=== PATIENT | female | born 1945 | race Caucasian/White ===

== ENCOUNTER 2019-07-20 22:10 | Observation (INO) | payer MEDICARE, BC ==
--- NOTE | 2019-07-20 23:30 | ED ---
General Adult HPI - General Chief complaint: Neck Pain/Injury Stated complaint: Neck/arm numbness Time Seen by Provider: 07/20/19 22:31 Source: patient Mode of arrival: ambulatory Limitations: no limitations - History of Present Illness Initial comments: Patient presents to the ED with her complaining of having posterior left-sided neck pain radiating down her left arm for the past 7-1/2 hours or so. Patient states that her pain has improved currently. Patient states that she did take a dose of Tylenol earlier today. Patient denies known trauma or injury, fever or chills, headache, focal numbness or weakness, chest pain or pressure, dyspnea, dizziness, nausea or vomiting, palpitations, abdominal pain, or any other symptoms or complaints. - Related Data Allergies Allergy/AdvReac Type Severity Reaction Status Date / Time Penicillins Allergy Vomiting Verified 07/20/19 22:19 prochlorperazine Allergy Unknown Verified 07/20/19 22:19 [From Compazine] Review of Systems ROS Statement: Those systems with pertinent positive or pertinent negative responses have been documented in the HPI. ROS Other: All systems not noted in ROS Statement are negative. Past Medical History Past Medical History: GERD/Reflux Additional Past Medical History / Comment(s): osteoporosis History of Any Multi-Drug Resistant Organisms: None Reported Past Surgical History: Appendectomy, Cholecystectomy, Hysterectomy, Ton sillectomy Additional Past Surgical History / Comment(s): basal cell carcinoma, excision of vulvar lesion, bilateral blepharoplasty, septoplasty Past Psychological History: Anxiety, Depression Smoking Status: Never smoker Past Alcohol Use History: None Reported Past Drug Use History: None Reported General Exam Limitations: no limitations General appearance: alert, in no apparent distress Head exam: Present: atraumatic, normocephalic Eye exam: Present: normal appearance, PERRL, EOMI ENT exam: Present: mucous membranes moist Neck exam: Present: full ROM (Trachea is in midline; patient is noted to have tenderness along the superior trapezius muscle along the left side.), other (Trachea is in midline; patient is noted to have some tenderness along her left trapezius muscle superiorly; no midline spinal tenderness is appreciated). Absent: meningismus Respiratory exam: Present: normal lung sounds bilaterally. Absent: respiratory distress, wheezes, rales, rhonchi Cardiovascular Exam: Present: regular rate, normal rhythm, normal heart sounds, other (Normal radial pulses bilaterally) GI/Abdominal exam: Present: soft. Absent: distended, tenderness Back exam: Present: full ROM. Absent: tenderness Neurological exam: Present: alert, oriented X3. Absent: motor sensory deficit Psychiatric exam: Present: anxious Skin exam: Present: warm, dry, intact, normal color Course Vital Signs 07/20/19 07/21/19 22:13 00:00 Temperature 98.0 F Pulse Rate 85 71 Respiratory 18 16 Rate Blood Pressure 180/77 151/67 O2 Sat by Pulse 96 98 Oximetry - Reevaluation(s) Reevaluation #1: 07/21/19 01:00 Case, H&P, test results and ED management were discussed with Dr. Huff (hospitalist). He accepts observational hospital admission. He has no further recommendations at this time. 07/21/19 01:11 Patient denies development of any new pain or symptoms while in the ED. Patient remains alert and breathing comfortably. Patient and are aware of the patient's test results, and patient agrees with hospital admission at this time given her symptoms and minimally elevated troponin. EKG Findings - EKG Comments: EKG Findings:: Normal sinus rhythm, ventricular rate of 76 bpm, normal MT and QRS intervals, normal QT interval, normal axis, no ST or T-wave abnormality, normal EKG Medical Decision Making - Medical Decision Making Given the patient's H&P, I suspect that the patient's symptoms are likely muscul oskeletal and/or radicular in etiology, but given that her troponin is minimally elevated, will admit the patient to the hospital for further cardiac evaluation and observation. She agrees with this plan. - Lab Data Result diagrams: 07/20/19 23:34 07/20/19 23:34 Lab Results 07/20/19 07/20/19 07/20/19 Range/Units 23:30 23:34 23:34 WBC (3.8-10.6) k/uL RBC (3.80-5.40) m/uL Hgb (11.4-16.0) gm/dL Hct (34.0-46.0) % MCV (80.0-100.0) fL MCH (25.0-35.0) pg MCHC (31.0-37.0) g/dL RDW (11.5-15.5) % Plt Count (150-450) k/uL Neutrophils % % Lymphocytes % % Monocytes % % Eosinophils % % Basophils % % Neutrophils # (1.3-7.7) k/uL Lymphocytes # (1.0-4.8) k/uL Monocytes # (0-1.0) k/uL Eosinophils # (0-0.7) k/uL Basophils # (0-0.2) k/uL PT 10.8 (9.0-12.0) sec INR 1.0 (<1.2) APTT 26.7 (22.0-30.0) sec Sodium 140 (137-145) mmol/L Potassium 3.7 (3.5-5.1) mmol/L Chloride 105 (98-107) mmol/L Carbon Dioxide 29 (22-30) mmol/L Anion Gap 6 mmol/L BUN 12 (7-17) mg/dL Creatinine 0.65 (0.52-1.04) mg/dL Est GFR (CKD-EPI)AfAm >90 (>60 ml/min/1.73 sqM) Est GFR (CKD-EPI)NonAf 89 (>60 ml/min/1.73 sqM) Glucose 97 (74-99) mg/dL Calcium 9.1 (8.4-10.2) mg/dL Troponin I 0.040 H* (0.000-0.034) ng/mL 07/20/19 Range/Units 23:34 WBC 6.6 (3.8-10.6) k/uL RBC 4.62 (3.80-5.40) m/uL Hgb 14.0 (11.4-16.0) gm/dL Hct 42.3 (34.0-46.0) % MCV 91.5 (80.0-100.0) fL MCH 30.4 (25.0-35.0) pg MCHC 33.2 (31.0-37.0) g/dL RDW 13.2 (11.5-15.5) % Plt Count 305 (150-450) k/uL Neutrophils % 54 % Lymphocytes % 24 % Monocytes % 7 % Eosinophils % 12 % Basophils % 2 % Neutrophils # 3.6 (1.3-7.7) k/uL Lymphocytes # 1.6 (1.0-4.8) k/uL Monocytes # 0.5 (0-1.0) k/uL Eosinophils # 0.8 H (0-0.7) k/uL Basophils # 0.1 (0-0.2) k/uL PT (9.0-12.0) sec INR (<1.2) APTT (22.0-30.0) sec Sodium (137-145) mmol/L Potassium (3.5-5.1) mmol/L Chloride (98-107) mmol/L Carbon Dioxide (22-30) mmol/L Anion Gap mmol/L BUN (7-17) mg/dL Creatinine (0.52-1.04) mg/dL Est GFR (CKD-EPI)AfAm (>60 ml/min/1.73 sqM) Est GFR (CKD-EPI)NonAf (>60 ml/min/1.73 sqM) Glucose (74-99) mg/dL Calcium (8.4-10.2) mg/dL Troponin I (0.000-0.034) ng/mL - Radiology Data Radiology results: report reviewed (CT cervical spine shows minor degenerative disc changes and no fracture), image reviewed (Chest x-ray is negative) Disposition Clinical Impression: Neck pain, Elevated troponin Disposition: ADMITTED IP TO THIS [facility] Condition: Stable Is patient prescribed a controlled substance at d/c from ED?: No Referrals: Nonstaff,Physician [Primary Care Provider] - 1-2 days Time of Disposition: 01:00
[2019-07-20 23:41] LABS: Basophils # (A) 0.1 k/uL (0-0.2); Basophils % (A) 2 %; Eosinophils # (A) 0.8 k/uL (0-0.7); Eosinophils % (A) 12 %; HCT 42.3 % (34.0-46.0); Lymphocytes # (A) 1.6 k/uL (1.0-4.8); Lymphocytes % (A) 24 %; MCH 30.4 pg (25.0-35.0); MCHC 33.2 g/dL (31.0-37.0); MCV 91.5 fL (80.0-100.0); Mean Platelet Volume 6.7; Monocytes # (A) 0.5 k/uL (0-1.0); Monocytes % (A) 7 %; Neutrophils # (A) 3.6 k/uL (1.3-7.7); Neutrophils % (A) 54 %; Platelet Count 305 k/uL (150-450); RBC 4.62 m/uL (3.80-5.40); RDW 13.2 % (11.5-15.5); WBC 6.6 k/uL (3.8-10.6)
[2019-07-20 23:49] LABS: African American GFR (CKD) >90 (>60 ml/min/1.73 sqM); Anion Gap 6 mmol/L; Blood Urea Nitrogen 12 mg/dL (7-17); Calcium 9.1 mg/dL (8.4-10.2); Carbon Dioxide 29 mmol/L (22-30); Chloride 105 mmol/L (98-107); Glucose 97 mg/dL (74-99); Non-African American GFR(CKD) 89 (>60 ml/min/1.73 sqM); Potassium 3.7 mmol/L (3.5-5.1); Sodium 140 mmol/L (137-145)
[2019-07-21 00:39] LABS: Partial Thromboplastin Time 26.7 sec (22.0-30.0); Prothrombin Time 10.8 sec (9.0-12.0)
--- NOTE | 2019-07-21 00:43 | CT ---
EXAMINATION TYPE: CT cervical spine wo con DATE OF EXAM: 07/21/2019 COMPARISON: None HISTORY: neck pain CT DLP: 241.5 mGycm Automated exposure control for dose reduction was used. TECHNIQUE: CT scan of the cervical spine is obtained without contrast, axial images are obtained, sa gittal and coronal reformatted images are also reviewed. FINDINGS: There is some straightening of the vertebra. Disc spaces are normal for age. Facet joints a re intact. There is mild hypertrophic mild facet arthropathy. The skull base is intact. There is no e vidence of a fracture. IMPRESSION: Minor degenerative disc changes in the cervical spine. No fracture seen.
--- NOTE | 2019-07-21 00:45 | XR ---
EXAMINATION TYPE: XR chest 2V DATE OF EXAM: 07/21/2019 COMPARISON: NONE HISTORY: Neck pain left side arm pain TECHNIQUE: Frontal and lateral views of the chest are obtained. FINDINGS: Heart and mediastinum are normal. Lungs are clear of infiltrate. There is no heart failure . There are no hilar masses. Bony thorax is intact. IMPRESSION: No active cardiopulmonary disease. Normal heart.
[2019-07-21] MEDS ORDERED: ASPIRIN 81 MG PO STA (00:54)
--- NOTE | 2019-07-21 02:11 | P.HPIM ---
History of Present Illness H&P Date: 07/21/19 Patient is a 74-year-old female with a PMH of GERD who presented to the ED with complaints of left lateral neck pain with radiation to the left arm. Patient notes that the pain started earlier today and gradually progressed, with some left arm numbness. She reports that her pain had improved by the time of the interview. She denied any trauma, weakness, numbness, chest pain, shortness of breath, nausea, vomiting, diaphoresis, palpitations, or dizziness. She underwent an extensive evaluation in the emergency room with a CT cervical spine without contrast unremarkable, chest x-ray unremarkable, with EKG showing normal sinus rhythm at 76 bpm with no ischemic changes noted. Laboratory evaluation revealed a troponin level of 0.04, WBC 6.6, hemoglobin 14, platelets 305, sodium 140, potassium 3.7, BUN 12, creatinine 0.65. She was admitted to the medicine service for further management. Review of Systems Pertinent positives and negatives as discussed in HPI, a complete review of systems was performed and all other systems are negative. Past Medical History Past Medical History: GERD/Reflux Additional Past Medical History / Comment(s): osteoporosis History of Any Multi-Drug Resistant Organisms: None Reported Past Surgical History: Appendectomy, Cholecystectomy, Hysterectomy, Tonsillectomy Additional Past Surgical History / Comment(s): basal cell carcinoma, excision of vulvar lesion, bilateral blepharoplasty, septoplasty Past Psychological History: Anxiety, Depression Smoking Status: Never smoker Past Alcohol Use History: None Reported Past Drug Use History: None Reported - Past Family History Father Family Medical History: COPD Additional Family Medical History / Comment(s): States passed from COPD, cardiac problems (unknown) Mother Family Medical History: Cancer Medications and Allergies Allergies Allergy/AdvReac Type Severity Reaction Status Date / Time Penicillins Allergy Vomiting Verified 07/20/19 22:19 prochlorperazine Allergy Unknown Verified 07/20/19 22:19 [From Compazine] Physical Exam Vitals: Vital Signs Temp Pulse Pulse Resp BP BP Pulse Ox 07/21/19 01:41 97.9 F 83 16 181/72 07/21/19 01:37 77 18 152/76 98 07/21/19 00:00 71 16 151/67 98 07/20/19 22:13 98.0 F 85 18 180/77 96 Intake and Output 07/20/19 07/20/19 07/21/19 14:59 22:59 06:59 Other: Weight 69.853 kg General: non toxic, no distress, appears at stated age, normal weight Derm: no unusual rashes/lesions no unusual ecchymoses, warm, dry Head: atraumatic, normocephalic, symmetric Eyes: EOMI, no lid lag, anicteric sclera, pupils equal round reactive to light ENT: Nose and ears atraumatic, no thrush, no pharyngeal erythema Neck: No thyromegaly, no cervical lymphadenopathy, trachea midline, supple Mouth: no lip lesion, mucus membranes moist Cardiovascular: S1S2 reg, no murmur, positive posterior tibial pulse bilateral, no edema, capillary refill less than 2 seconds Lungs: CTA bilateral, no rhonchi, no rales , no accessory muscle use Abdominal: soft, nontender to palpation, no guarding, no appreciable organomegaly, normal bowel sounds Ext: no gross muscle atrophy, muscle strength 5 out of 5 in all 4 extremities grossly, no contractures, mild left posterior and lateral cervical paravertebral pain Neuro: CN II-XI grossly intact, light touch intact all 4 extremities, finger to nose within normal limits, Psych: Alert, oriented, appropriate affect Results CBC & Chem 7: 07/20/19 23:34 07/20/19 23:34 Labs: Abnormal Lab Results - Last 24 Hours (Table) 07/20/19 07/20/19 Range/Units 23:34 23:34 Eosinophils # 0.8 H (0-0.7) k/uL Troponin I 0.040 H* (0.000-0.034) ng/mL Assessment and Plan Plan: Troponin elevation -Trend troponin for now -Less likelihood of primary cardiac issue in absence of shortness of breath, chest discomfort, or additional cardiac complaints -Cardiac monitoring DVT prophylaxis -Heparin The patient is admitted with an anticipated less than 2 midnight stay for evaluation of troponin elevation CODE STATUS: Full Code Discussed with: Patient Anticipated discharge date: 1-[address]: Home A total of 35 minutes was spent on the care of this complex patient more than 50% of the time was spent in counseling and care coordination.
[2019-07-21] MEDS ORDERED: ALPRAZolam 0.25 MG TAB PO PRN (08:39)
[2019-07-21] MEDS ORDERED: PANTOPRAZOLE 40 MG TABLET PO PRN (08:39)
--- NOTE | 2019-07-21 08:47 | P.PN ---
Progress Note - Text Progress Note Date: 07/21/19 Briefly this patient is a 74-year-old female with no past focal history of hypertension hyperlipidemia or diabetes that was admitted for left lateral neck pain, she had a initial elevation of her troponin at 0.04 with EKG showing sinus mechanism with no sedation acute ischemia CT of her neck indicated mild cervical DJD. Cardiology has been consulted awaiting on recommendations patient may need echocardiogram and if negative discharge today
[2019-07-21] MEDS ORDERED: NON FORMULARY DRUG (Biotin [Biotin] 5 MG) PO SCH (09:00)
[2019-07-21] MEDS: CHOLECALCIFEROL 1,000 UNIT TAB PO SCH (09:49)
[2019-07-21] MEDS: MULTIVITAMINS, THERA 1 EACH TAB PO SCH (09:49)
[2019-07-21] MEDS: CITALOPRAM HYDROBROMIDE 10 MG TAB PO SCH (09:49)
--- NOTE | 2019-07-21 13:36 | CONS ---
CONSULTATION Mrs. Gardner is a 74-year-old female with no prior documented history of cardiac disease who presented to the emergency room with left shoulder discomfort. The discomfort has been going on for the last day, persistent at times. It started in the shoulder and started to radiate to the arm. Because of that she came into the emergency room. She had no associated chest discomfort. She has no associated dizziness or palpitation. No peripheral edema. No PND, orthopnea. She denies any dizziness or syncope. She is reasonably active physically and has no exertional chest discomfort. She has no prior cardiac history. She had a stress test about 15 years ago that was unremarkable. The patient's exercise is unchanged. Yesterday, she checked her blood pressure and it was elevated, which is new for her. Her coronary risk factors are negative for hypertension, hyperlipidemia, or diabetes. She is a nonsmoker. MEDICATION: Her medications at home include omeprazole, Celexa, Elavil, and Xanax. REVIEW OF SYSTEMS: RESPIRATORY SYSTEM: She has no documented history of asthma, emphysema or bronchitis. GI SYSTEM: No history of GI bleeding. No peptic ulcer disease. SYSTEM: No dysuria or hematuria. NERVOUS SYSTEM: No stroke or seizure. PHYSICAL EXAMINATION: 74-year-old female, alert, oriented, in no apparent distress. Blood pressure 135/60 with a heart in the 80s. HEAD: Normocephalic. EYES: Sclerae anicteric. NECK: Good carotid upstroke, no bruit. No jugular venous distention. LUNGS: Clear to auscultation. HEART: Regular rate and rhythm S1, S2. No S3. No rub or gallop. ABDOMEN: Soft, nontender. Positive bowel sounds. No organomegaly. EXTREMITIES: No edema. Intact pulses. LAB DATA: Revealed the first troponin of 0.04, subsequently 0.03. NT proBNP of 79. BUN and creatinine 12 and 0.65. Hemoglobin of 14. EKG revealed a sinus mechanism, normal axis intervals, normal echocardiogram. Chest x-ray shows no acute infiltrate. IMPRESSION: Shoulder discomfort, atypical for ischemic heart disease with one elevation of troponin of unclear significance. RECOMMENDATION: Her pain is probable musculoskeletal with the fact that one troponin was elevated. I have recommend proceeding with a myocardial perfusion imaging as well as an echocardiogram. If there is no evidence of abnormalities, then no further cardiac workup will be needed. Thank you for this consult. We will follow with you. MMODL / IJN: [id number] /
[2019-07-21] MEDS ORDERED: AMITRIPTYLINE HCL 10 MG TAB PO SCH (21:00)
[2019-07-22 06:10] LABS: HCT 40.2 % (34.0-46.0); HGB 13.7 gm/dL (11.4-16.0); MCH 31.2 pg (25.0-35.0); MCV 91.8 fL (80.0-100.0); Mean Platelet Volume 6.2; Platelet Count 276 k/uL (150-450); RBC 4.38 m/uL (3.80-5.40); RDW 13.2 % (11.5-15.5); WBC 6.4 k/uL (3.8-10.6)
[2019-07-22 06:23] LABS: ALT 16 U/L (9-52); AST 15 U/L (14-36); African American GFR (CKD) >90 (>60 ml/min/1.73 sqM); Albumin 3.6 g/dL (3.5-5.0); Alkaline Phosphatase 52 U/L (38-126); Anion Gap 9 mmol/L; Blood Urea Nitrogen 10 mg/dL (7-17); Calcium 8.6 mg/dL (8.4-10.2); Carbon Dioxide 26 mmol/L (22-30); Chloride 105 mmol/L (98-107); Glucose 92 mg/dL (74-99); Non-African American GFR(CKD) >90 (>60 ml/min/1.73 sqM); Potassium 3.9 mmol/L (3.5-5.1); Sodium 140 mmol/L (137-145); Total Bilirubin 0.4 mg/dL (0.2-1.3); Total Protein 6.2 g/dL (6.3-8.2)
[2019-07-22 06:40] LABS: Eosinophils # (M) 1.73 k/uL (0-0.7); Lymphocytes # (M) 1.98 k/uL (1.0-4.8); Monocytes # (M) 0.38 k/uL (0-1.0); Neutrophils % (M) 36 %; Nucleated Red Blood Cells 0 /100 WBC (0-0); Total Cells Counted 200
[2019-07-22] MEDS ORDERED: ASPIRIN 81 MG PO SCH (09:00)
[2019-07-22] MEDS: MULTIVITAMINS, THERA 1 EACH TAB PO SCH (09:48)
[2019-07-22] MEDS: CHOLECALCIFEROL 1,000 UNIT TAB PO SCH (09:48)
[2019-07-22] MEDS: CITALOPRAM HYDROBROMIDE 10 MG TAB PO SCH (09:48)
--- NOTE | 2019-07-22 10:25 | ECHOF ---
Referral Reason:cp MEASUREMENTS -------- HEIGHT: 152.4 cm WEIGHT: 69.4 kg BP: 149/69 RVIDd: 3.0 cm (< 3.3) IVSd: 1.0 cm (0.6 - 1.1) LVIDd: 3.6 cm (3.9 - 5.3) LVPWd: 1.1 cm (0.6 - 1.1) IVSs: 1.3 cm LVIDs: 2.8 cm LVPWs: 1.4 cm LA Diam: 3.6 cm (2.7 - 3.8) LAESV Index (A-L): 23.86 ml/m Ao Diam: 2.5 cm (2.0 - 3.7) AV Cusp: 1.8 cm (1.5 - 2.6) LA Diam: 3.7 cm (2.7 - 3.8) MV EXCURSION: 19.436 mm (> 18.000) MV EF SLOPE: 64 mm/s (70 - 150) EPSS: 0.2 cm MV E Jamshid: 0.41 m/s MV DecT: 279 ms MV A Jamshid: 0.81 m/s MV E/A Ratio: 0.51 RAP: 5.00 mmHg RVSP: 25.62 mmHg TAPSE: 18.05 mm FINDINGS -------- Sinus rhythm. This was a technically good study. LV size, wall thickness and systolic function are normal, with an EF greater than 55%. The left orlin tricular size is normal. The diastolic filling pattern is normal for the age of the patient 7.23. The right ventricle is normal in size. The left atrial size is normal. Normal LA size by volume 22+/-6 ml/m2. The right atrial size is normal. The aortic valve is trileaflet, and appears structurally normal. No aortic stenosis or regurgitation. Mild mitral annular calcification present. Mild mitral regurgitation is present. Mild tricuspid regurgitation present. Right ventricular systolic pressure is normal at < 35 mmHg. There is no evidence of pulmonary hypertension. There is no pulmonic regurgitation present. The aortic root size is normal. There is no pericardial effusion. CONCLUSIONS -------- 1. Sinus rhythm. 2. This was a technically good study. 3. LV size, wall thickness and systolic function are normal, with an EF greater than 55%. 4. The left ventricular size is normal. 5. The diastolic filling pattern is normal for the age of the patient 7.23 6. The right ventricle is normal in size. 7. The left atrial size is normal. 8. Normal LA size by volume 22+/-6 ml/m2. 9. The right atrial size is normal. 10. The aortic valve is trileaflet, and appears structurally normal. No aortic stenosis or regurgitat ion. 11. Mild mitral annular calcification present. 12. Mild mitral regurgitation is present. 13. Mild tricuspid regurgitation present. 14. Right ventricular systolic pressure is normal at < 35 mmHg. 15. There is no evidence of pulmonary hypertension. 16. There is no pulmonic regurgitation present. 17. The aortic root size is normal. 18. There is no pericardial effusion. ROUTE INSPECTOR: Radha Carreno RDCS
--- NOTE | 2019-07-22 11:07 | P.PN ---
Subjective Progress Note Date: 07/22/19 This is a 74-year-old female who presented to the hospital initially with symptoms of shoulder discomfort. Troponins came back at 0.040, 0.031, 0.014. No significant EKG changes.she was seen in consultation yesterday by Dr. Zhang, advised to undergo stress testing and echocardiogram with Doppler study.the echo was formed this morning, revealed an ejection fraction of 55%.patient was seen and examined this morning, denied any chest pain, no shoulder discomfort today, and her breathing is stable.blood pressure 140/80 this morning with a heart rate in the 70s, 97% on room air. White blood cell count 6.4, hemoglobin 13.7, platelet count 276.sodium 140, potassium 3.9, BUN 10 and creatinine 0.5. Objective - Vital Signs Vital signs: Vital Signs Temp 97.9 F 07/22/19 08:00 Pulse 75 07/22/19 08:00 Resp 18 07/22/19 08:00 BP 140/80 07/22/19 08:00 Pulse Ox 97 07/22/19 08:00 Intake & Output 07/21/19 07/22/19 07/22/19 18:59 06:59 18:59 Intake Total 610 Balance 610 Weight 69.8 kg Intake: Oral 610 Other: Voiding Method Toilet # Voids 2 1 - Exam PHYSICAL EXAMINATION: GENERAL:74-year-old female in no acute distress at the time of my examination HEENT: Head is atraumatic, normocephalic. Pupils equal, round. Sclera anicteric. Conjunctiva are clear. Mucous membranes of the mouth are moist. Neck is supple. There is no elevated jugular venous pressure.no carotid bruit is heard. HEART EXAMINATION: [Heart S1, S2 normal. No murmur or gallop heard.] CHEST EXAMINATION:[ Lungs are clear to auscultation and precussion. No chest wall tenderness is noted on palpation or with deep breathing.] ABDOMEN: [ Soft, nontender. Bowel sounds are heard. No organomegaly noted]. EXTREMITIES:[ 2+ peripheral pulses with no evidence of peripheral edema and no calf tenderness noted]. NEUROLOGIC [patient is awake, alert and oriented 3.] . - Labs CBC & Chem 7: 07/22/19 05:49 07/22/19 05:49 Labs: Abnormal Lab Results - Last 24 Hours (Table) 07/22/19 07/22/19 Range/Units 05:49 05:49 Eosinophils # (Manual) 1.73 H (0-0.7) k/uL Total Protein 6.2 L (6.3-8.2) g/dL Assessment and Plan Plan: Assessment and Plan #1 symptoms of left shoulder discomfort with mildly abnormal troponins. #2 GERD Plan Patient is scheduled today to undergo stress Cardiolite study, if negative she may be able to be discharged home from our perspective. Further recommendations to follow. DNP note has been reviewed, I agree with a documented findings and plan of care. Patient was seen and examined.
--- NOTE | 2019-07-22 12:30 | NM ---
EXAMINATION TYPE: NM stress cardiolite complete DATE OF EXAM: 07/22/2019 COMPARISON: NONE HISTORY: Chest pain TECHNIQUE: After the intravenous administration of 10.16 mCi Tc 99m Sestamibi - Rest images obtained 85 minutes post injection. The patient exercised using a GUILLERMO protocol and 1 minute prior to peak exercise was injected with 24.8 mCi Tc 99m Sestamibi - Stress images obtained 10 minutes post inject ion. FINDINGS: No fixed or reversible perfusion defects are evident. Gated wall motion is normal. Ejection fraction of 71% is normal. Polar maps are normal. IMPRESSION: No stress-induced ischemic change
[2019-07-22 12:42] VITALS: BP 140/70; PULSE 84; RESP 16; TEMP 98.2
--- NOTE | 2019-07-22 14:19 | P.DS ---
Providers Date of admission: 07/21/19 01:10 Expected date of discharge: 07/22/19 Attending physician: Chandana Huff MD Consults: 07/21/19 08:09 Consult Physician Stat Consulting Provider: Zamzam Zhang Consult Reason/Comments: neck and arm pain, elevated trops Do you want consulting provider notified?: Already Contacted Primary care physician: Physician Nonstaff Hospital Course: Discharge diagnosis Left shoulder pain Elevated troponins Mild cervical DDD Left cervical pain GERD Hospital course The patient is a 74-year-old female who presented to the ER with chief complaint of left shoulder pain and left neck pain and was placed in observation after she was noted to have elevated troponins at0.040, 0.031, 0.014. EKG showed no changes suggestive of any acute ischemia and showed sinus mechanism. CT of the neck showed minor degenerative disc changes in the cervical spine. Cardiology was consulted and patient was recommended to undergo a echocardiogram which showed preserved LVEF without any significant valvular abnormalities. Patient was also scheduled for a Lexiscan stress test which was negative for any suggestion of reversible ischemia. After this negative workup the patient was discharged home in stable condition to follow-up with her PCP , this discharge process took approximately 30 minutes Focused exam: Cardiovascular regular rate rhythm no murmurs , rubs or gallops Patient Condition at Discharge: Stable Plan - Discharge Summary New Discharge Prescriptions: Continue Omeprazole 20 mg PO DAILY PRN PRN Reason: gerd Multivit-Min/Iron/Folic/Lutein [Centrum Silver Women Tablet] 1 tab PO DAILY Citalopram Hydrobromide [CeleXA] 10 mg PO DAILY Cholecalciferol (Vitamin D3) [Vitamin D3] 2,000 unit PO DAILY Biotin 5 mg PO DAILY Amitriptyline HCl [Elavil] 10 mg PO HS ALPRAZolam [Xanax] 0.125 mg PO BID PRN PRN Reason: Anxiety Discharge Medication List ALPRAZolam [Xanax] 0.125 mg PO BID PRN 07/21/19 [History] Amitriptyline HCl [Elavil] 10 mg PO HS 07/21/19 [History] Biotin 5 mg PO DAILY 07/21/19 [History] Cholecalciferol (Vitamin D3) [Vitamin D3] 2,000 unit PO DAILY 07/21/19 [History] Citalopram Hydrobromide [CeleXA] 10 mg PO DAILY 07/21/19 [History] Multivit-Min/Iron/Folic/Lutein [Centrum Silver Women Tablet] 1 tab PO DAILY 07/21/19 [History] Omeprazole 20 mg PO DAILY PRN 07/21/19 [History] Follow up Appointment(s)/Referral(s): Nonstaff,Physician [Primary Care Provider] - 1-2 days Discharge Disposition: HOME SELF-CARE
--- NOTE | 2019-07-23 11:00 | EST ---
EXERCISE STRESS AGE: 74 SEX: F HT: 60" WT: 153 PROTOCOL: Cardiolite Sai Stress Test STAGE: I DURATION OF EXERCISE: 3:31 HEART RATE REST: 77 BLOOD PRESSURE REST: 155/68 MAXIMUM HEART RATE ACHIEVED: 135 MAXIMUM BLOOD PRESSURE: 210/55 85% MPHR: 125 100% MPHR: 147 METS: 4.0 INDICATIONS: Chest pain. Baseline EKG shows sinus rhythm, normal axis, normal intervals. Patient exercised on Sai protocol for a total of 3.5 minutes achieving 4 METS, 92% of predicted maximal heart rate without chest pain or diagnostic ST-segment depression. CONCLUSION: 1. Poor exercise tolerance. 2. Negative stress test by EKG criteria. 3. Cardiolite portion of this stress test will be reported separately. MMODL / IJN: [id number] /
== END 2019-07-22 14:51 | disposition home or self-care (01) ==
LOC: EC 22:10 → 3SCARD 07-21 01:10
PROVIDERS: ADMIT Internal Medicine; ATTEND Internal Medicine
DX: M50.30 Other cervical disc degeneration, unspecified cervical region (principal); M25.512 Pain in left shoulder; R79.89 Other specified abnormal findings of blood chemistry; K21.9 Gastro-esophageal reflux disease without esophagitis; R20.0 Anesthesia of skin; M79.602 Pain in left arm; R09.89 Other specified symptoms and signs involving the circulatory and respiratory systems; M81.0 Age-related osteoporosis without current pathological fracture; F41.9 Anxiety disorder, unspecified; F32.9 Major depressive disorder, single episode, unspecified; Z88.1 Allergy status to other antibiotic agents; Z88.8 Allergy status to other drugs, medicaments and biological substances; Z90.49 Acquired absence of other specified parts of digestive tract; Z90.710 Acquired absence of both cervix and uterus; Z90.89 Acquired absence of other organs; Z85.828 Personal history of other malignant neoplasm of skin; Z98.890 Other specified postprocedural states; Z82.5 Family history of asthma and other chronic lower respiratory diseases; Z82.49 Family history of ischemic heart disease and other diseases of the circulatory system; Z80.9 Family history of malignant neoplasm, unspecified
CPT/HCPCS: 99285; 36415; 93005; 93017; 93306; 83880; 80053; 80048; 84484 ×2; 85025 ×2; 85610; 85730; 71046; 72125; 78452; G0378 ×2; A9500

== ENCOUNTER → 2024-10-29 | Day surgery (SDC) | payer MEDICARE, BC ==
[2024-10-25 12:06] VITALS: BMI 27.7
[~2024-10-29] MED LIST: LIDOCAINE 2% (PF) 20 MG/ML 5 ML VIAL ONE; PROPOFOL 10 MG/ML 20 ML VIAL IV ONE
[2024-10-29 08:36] VITALS: RESP 16; TEMP 97.6
[2024-10-29] MEDS: IV FLUID CONTINUATION 1,000 ML IV ONE (08:36)
[2024-10-29] MEDS: LACTATED RINGERS 1,000 ML IV SCH (08:36)
[2024-10-29] MEDS: LIDOCAINE 1% (10MG/ML) FOR IV START INTRADERMA PRN (08:36)
--- NOTE | 2024-10-29 09:43 | P.PCN ---
Date of Procedure: 10/29/24 Procedure(s) Performed: BRIEF HISTORY: Patient is a 79-year-old, pleasant, white female scheduled for an upper endoscopy as a part of evaluation of longstanding history of GERD and intermittent dysphagia to solids.. PROCEDURE PERFORMED: Esophagogastroduodenoscopy with biopsy and dilation. PREOPERATIVE DIAGNOSIS: Longstanding history of GERD and intermittent dysphagia to solids. IV sedation per anesthesia. PROCEDURE: After informed consent was obtained, the patient was brought into the endoscopy unit. IV sedation was administered by Anesthesia under continuous monitoring. Initially the Olympus GIF-140 video endoscope was inserted into the mouth. Esophagus intubated without any difficulty. It was gradually advanced into the stomach and duodenum and carefully examined. The bulb of the duodenum appeared normal. In the second part of the duodenum there was a 1 cm slightly raised duodenal polyp and multiple biopsies were done from this area. The scope at this time was withdrawn to the stomach, adequately insufflated with air, and upon careful examination, mucosa of the antrum, body, cardia and the fundus appeared normal. The scope was then withdrawn into the esophagus. The GE junction was located at 39 cm from the incisors. Small hiatal hernia noted. There was a distal esophageal Schatzki's ring identified that was dilated using 18 to 20 mm TTS balloon for 30 seconds. The rest of the esophagus appeared normal. There were no erosions or ulcerations seen and the patient tolerated the procedure well. IMPRESSION: 1. 1 cm slightly raised duodenal polyp in the second part of the duodenum status post multiple biopsies. 2. Small hiatal hernia 3. Distal esophageal Schatzki's ring status post balloon dilation using 18 to 20 mm TTS balloon. RECOMMENDATIONS: The findings of this examination were discussed with the patient as well as her family. She was advised to be on clear liquid diet for 2 hours. Continue with omeprazole 20 mg daily and follow antireflux measures.. Follow-up in the office in 2 to 3 weeks.
[2024-10-29 10:13] VITALS: BP 141/69; PULSE 70
== END ==
LOC: ORWHC2ENDO 07:58
PROVIDERS: ATTEND Internal Medicine Gastroenterology
DX: K22.2 Esophageal obstruction (principal); K31.7 Polyp of stomach and duodenum; K29.80 Duodenitis without bleeding; K26.9 Duodenal ulcer, unspecified as acute or chronic, without hemorrhage or perforation; K31.89 Other diseases of stomach and duodenum; K21.9 Gastro-esophageal reflux disease without esophagitis; K44.9 Diaphragmatic hernia without obstruction or gangrene; I10 Essential (primary) hypertension; F41.9 Anxiety disorder, unspecified; Z79.899 Other long term (current) drug therapy; Z85.828 Personal history of other malignant neoplasm of skin; Z88.1 Allergy status to other antibiotic agents; Z88.0 Allergy status to penicillin; Z88.8 Allergy status to other drugs, medicaments and biological substances
CPT/HCPCS: 88305; 88342; 43239; 43249; J2704; J2003; C1726

== ENCOUNTER 2024-12-20 10:53 | Day surgery (SDC) | payer MEDICARE, BC ==
[2024-12-17 09:28] VITALS: BMI 28.1
[2024-12-20 11:39] VITALS: RESP 16; TEMP 97.1
[2024-12-20] MEDS: LACTATED RINGERS 1,000 ML IV ONE (11:52)
[2024-12-20] MEDS: LACTATED RINGERS 1,000 ML IV SCH (11:53)
[2024-12-20] MEDS ORDERED: PROPOFOL 10 MG/ML 20 ML VIAL IV ONE (12:17)
--- NOTE | 2024-12-20 12:32 | P.PCN ---
Date of Procedure: 12/20/24 Procedure(s) Performed: BRIEF HISTORY: Patient is a 79-year-old pleasant white female scheduled for an elective colonoscopy as a part of screening for prior history of colon polyps. Last colonoscopy was 5 years ago. PROCEDURE PERFORMED: Colonoscopy with biopsy. PREOPERATIVE DIAGNOSIS: Screening for history of colon polyps. IV sedation per Anesthesia. PROCEDURE: After informed consent was obtained, the patient, was brought into the endoscopy unit. IV sedation was administered by Anesthesia under continuous monitoring. Digital rectal examination was normal. Initially the Olympus CF-160 flexible pediatric video colonoscope was then inserted in the rectum, gradually advanced into the cecum with with mild to moderate difficulty. Careful examination was performed as the scope was gradually being withdrawn. Ileocecal valve and the appendiceal orifice were visualized and appeared normal. Prep was excellent. Mucosa of the cecum, ascending colon appeared normal. The transverse colon there is a 1 cm flat slightly raised polyp identified and multiple biopsies were done from this area., transverse colon, descending colon, sigmoid colon, and rectum appeared normal. Scattered sigmoid diverticulosis. Retroflexion was performed in the rectum and 1 cm rectal prolapse were seen. The patient tolerated the procedure well. IMPRESSION: 1 cm flat transverse colon polyp status post cold biopsy Scattered sigmoid diverticulosis Small rectal prolapse RECOMMENDATIONS: Findings of this examination were discussed with the patient as well as her family. She was advised to follow the biopsy results. If the biopsy reveals adenoma she can have repeat colonoscopy in 3 years. Meantime continue with a high-fiber diet and fiber supplements on a regular basis..
[2024-12-20 12:53] VITALS: BP 134/62; PULSE 66
== END 2024-12-20 13:19 | disposition home or self-care (01) ==
LOC: ORWHC2ENDO 10:53
PROVIDERS: ATTEND Internal Medicine Gastroenterology
DX: Z12.11 Encounter for screening for malignant neoplasm of colon (principal); Z86.0100 Personal history of colon polyps, unspecified; K57.30 Diverticulosis of large intestine without perforation or abscess without bleeding; K62.3 Rectal prolapse; K63.5 Polyp of colon
CPT/HCPCS: 88305; 88342; 88341; 45380; J2704